=== PATIENT | male | born 1955 | race Caucasian/White ===

== ENCOUNTER 2018-08-07 12:34 | Outpatient (CLI) | payer MEDICARE, OTHER ==
[2016-04-21 02:27] VITALS: BP 135/66
[2018-08-07 14:35] LABS: eGFR (Non-African) > 60
--- NOTE | 2018-08-07 14:51 | Diagnostic Imaging Report ---
ETHAN ALANIS [facility] [id number] [address] Report Submission Date: Aug 07, 2018 1:02:03 PM CDT Patient Study Name: SUZY GUDINO Date: Aug 07, 2018 12:36:08 PM CDT Modality Type: DX Gender: M Description: UPPER EXTREMITY : 51 Institution: [facility] Physician: ETHAN ALANIS Examination: Plain film right hand History: FELL ON SATURDAY, HYPEREXTENDED FINGERS, SWELLING/PAIN (Hx) Comparison exams: None available Findings: 3 views of the right hand demonstrates osteopenia. Articular degenerative changes. No fracture. No dislocation. No soft tissue abnormality. Impression: Osteopenia and degenerative changes. No acute appearing osseous abnormality Electronically signed on Aug 07, 2018 1:02:03 PM CDT by: Juaquin POLO
== END 2018-08-07 15:32 ==
LOC: LAB 12:34
PROVIDERS: ATTEND Family Medicine
DX: E11.9 Type 2 diabetes mellitus without complications (principal); M79.641 Pain in right hand
CPT/HCPCS: 73130; 80053; 80061; 82043; 83036

== ENCOUNTER 2019-07-29 08:02 | Outpatient (CLI) | payer MEDICARE, OTHER ==
[2016-04-21 02:27] VITALS: BP 135/66
[2019-07-29 08:37] LABS: A1C 6.1 % (<5.7)
[2019-07-29 08:44] LABS: HDL 46 mg/dL (>40); eGFR (Non-African) > 60
== END 2019-07-29 08:07 | disposition home or self-care (01) ==
LOC: LAB 08:02
PROVIDERS: ATTEND Family Medicine
DX: E11.9 Type 2 diabetes mellitus without complications (principal); M25.541 Pain in joints of right hand; M25.542 Pain in joints of left hand; Z79.4 Long term (current) use of insulin
CPT/HCPCS: 36415; 80053; 80061; 83036; 86431